=== PATIENT | female | born 1975 | race Caucasian/White ===

== ENCOUNTER 2017-04-12 11:46 | Emergency (ER) | payer SELFPAY ==
[2017-04-12 12:31] VITALS: TEMP 97.9
--- NOTE | 2017-04-12 13:04 | ED PDOC ---
HPI: Headache Time Seen by Provider: 04/12/17 12:42 Chief Complaint (Nursing): Headache Chief Complaint (Provider): headache History Per: Patient Additional Complaint(s): 31-year-old female with history of migraine headaches presents to emergency Department with headache that started at 1 AM. Patient did not take anything for pain at home. When she woke up this morning she noticed redness to her left eye with no associated pain or vision changes. She rates current headache as 7 out of 10. Patient states she has headache pain daily but the pain became worse overnight. Patient states this is not the worst headache of her life. She denies fever but states she had chills last night. No associated nausea or vomiting. PMD: [facility] Past Medical History Reviewed: Historical Data, Nursing Documentation, Vital Signs Vital Signs: Last Vital Signs Temp 97.9 F 04/12/17 12:27 Pulse 66 04/12/17 12:27 Resp 18 04/12/17 12:27 BP 183/98 H 04/12/17 12:27 Pulse Ox 99 04/12/17 12:27 - Medical History PMH: Migraine - Family History Family History: States: No Known Family Hx - Living Arrangements Living Arrangements: With Family - Social History Current smoker - smoking cessation education provided: No Alcohol: None Drugs: Denies - Home Medications Home Medications: Ambulatory Orders Medication Instructions Recorded Metoclopramide [Reglan] 10 mg PO Q6 PRN #20 tab 04/12/17 Naproxen [Naprosyn] 500 mg PO BID #20 tab 04/12/17 - Allergies Allergies/Adverse Reactions: Allergies Allergy/AdvReac Type Severity Reaction Status Date / Time No Known Allergies Allergy Verified 04/12/17 12:27 Review of Systems ROS Statement: Except As Marked, All Systems Reviewed And Found Negative Constitutional: Positive for: Chills. Negative for: Fever Eyes: Positive for: Redness (to left eye) Cardiovascular: Negative for: Chest Pain Respiratory: Negative for: Cough Gastrointestinal: Negative for: Nausea, Vomiting Neurological: Negative for: Weakness, Numbness, Incoordination, Change in Speech , Confusion, Seizures, Altered Mental Status, Headache, Dizziness Physical Exam - Reviewed Nursing Documentation Reviewed: Yes Vital Signs Reviewed: Yes - Physical Exam Appears: Positive for: Well, Non-toxic, No Acute Distress Head Exam: Positive for: ATRAUMATIC, NORMAL INSPECTION Skin: Positive for: Normal Color. Negative for: Rash Eye Exam: Positive for: Other (Subconjunctival hemorrhage noted to medial left eye) Neck: Positive for: Normal Cardiovascular/Chest: Positive for: Regular Rate, Rhythm Respiratory: Positive for: Normal Breath Sounds Neurologic/Psych: Positive for: Alert, radiation officer II-XII (grossly intact), Oriented, Gait (steady). Negative for: Motor/Sensory Deficits - Laboratory Results Result Diagrams: 04/12/17 14:26 04/12/17 14:26 Urine POC: Negative - ECG O2 Sat by Pulse Oximetry: 99 Pulse Ox Interpretation: Normal - Other Rad CT head X-Ray: Read By Radiologist X-Ray Interpretation: no acute finding Medical Decision Making Medical Decision Makin41 year old female with headache Plan: CBC CMP test Head CT IVF IV reglan PO tylenol Patient is aware of all diagnostic testing results, all questions answered. She reports complete resolution of pain status post meds given. Patient given prescriptions for Reglan and Naprosyn for use at home. She was referred to clinic for follow up. Disposition - Clinical Impression Clinical Impression: Migraine, Subconjunctival hemorrhage - Patient ED Disposition Is Patient to be Admitted: No Counseled Patient/Family Regarding: Studies Performed, Diagnosis, Need For Followup, Rx Given - Disposition Referrals: formerly [facility] [Outside] Disposition: Routine/Home Disposition Time: 16:53 Condition: IMPROVED Additional Instructions: Take prescription medications as directed. Rest and drink plenty of fluids. Follow-up with clinic in one to 2 days or return to emergency department any time if acutely worse. Prescriptions: Metoclopramide [Reglan] 10 mg PO Q6 PRN #20 tab PRN Reason: Nausea/Vomiting Naproxen [Naprosyn] 500 mg PO BID #20 tab Instructions: Migraine Headache (ED), Subconjunctival Hemorrhage (ED) Forms: [employer] (Zambian), [employer] ED School/Work Excuse Print Language: BURKIN[place] Results - Lab Results Lab Results: 04/12/17 04/12/17 14:26 14:26 WBC 5.5 RBC 4.59 Hgb 13.9 Hct 42.0 MCV 91.4 MCH 30.2 MCHC 33.0 RDW 13.4 Plt Count 183 MPV 9.8 Neut % (Auto) 66.4 Lymph % (Auto) 24.6 [place] % (Auto) 7.7 Eos % (Auto) 0.8 Baso % (Auto) 0.5 Neut # (Auto) 3.7 Lymph # (Auto) 1.4 [place] # (Auto) 0.4 Eos # (Auto) 0.0 Baso # (Auto) 0.0 Sodium 143 Potassium 3.7 Chloride 107 Carbon Dioxide 26 Anion Gap 14 BUN 10 Creatinine 0.6 L Est GFR ( Amer) > 60 Est GFR (Non-Af Amer) > 60 Random Glucose 97 Calcium 9.2 Total Bilirubin 0.7 AST 20 ALT 30 Alkaline Phosphatase 58 Total Protein 7.6 Albumin 4.3 Globulin 3.3 Albumin/Globulin Ratio 1.3
[2017-04-12] MEDS ORDERED: Sodium Chloride 0.9% 1,000 ML IV STA (13:07)
--- NOTE | 2017-04-12 14:28 | CT ---
PROCEDURE: CT HEAD WITHOUT CONTRAST. HISTORY: headache COMPARISON: CT head dated 11/30/2009. TECHNIQUE: Axial computed tomography images were obtained through the head/brain without intravenous contrast. Radiation dose: Total exam DLP = 99.8 mGy-cm. This CT exam was performed using one or more of the following dose reduction techniques: Automated exposure control, adjustment of the mA and/or kV according to patient size, and/or use of iterative reconstruction technique. FINDINGS: HEMORRHAGE: No intracranial hemorrhage. BRAIN: No mass effect or edema. No atrophy or chronic microvascular ischemic changes. VENTRICLES: Unremarkable. No hydrocephalus. CALVARIUM: Unremarkable. PARANASAL SINUSES: Unremarkable as visualized. No significant inflammatory changes. MASTOID AIR CELLS: Right maxillary sinus polyp or retention cyst. Small left maxillary sinus secretions. OTHER FINDINGS: None. IMPRESSION: No acute intracranial pathology.
[2017-04-12 14:44] LABS: BASO % 0.5 % (0.0-2.0); EOS % 0.8 % (0.0-4.0); HEMOGLOBIN 13.9 g/dL (12.0-16.0); LYMPH # 1.4 K/uL (1.0-4.3); LYMPH % 24.6 % (20.0-40.0); MEAN CELL VOLUME 91.4 fl (81.0-99.0); MEAN CORPUSCULAR HEMOGLOBIN 30.2 pg (27.0-31.0); MEAN PLATELET VOLUME 9.8 fl (7.2-11.7); MONO # 0.4 K/uL (0.0-0.8); MONO % 7.7 % (0.0-10.0); NEUT # 3.7 K/uL (1.8-7.0); NEUT % 66.4 % (50.0-75.0); NRBC % 0.1 % (0.0-0.0); RBC 4.59 Mil/uL (3.80-5.20); RED CELL DISTRIBUTION WIDTH 13.4 % (11.5-14.5); WHITE BLOOD COUNT 5.5 K/uL (4.8-10.8)
[2017-04-12 15:03] LABS: ALB/GLOB RATIO 1.3 (1.0-2.1); ALBUMIN 4.3 g/dL (3.5-5.0); ALT/SGPT 30 U/L (9-52); AST/SGOT 20 U/L (14-36); BLOOD UREA NITROGEN 10 mg/dl (7-17); CALCIUM 9.2 mg/dL (8.4-10.2); GFR AFRICAN-AMERICAN > 60; GFR NON-AFRICAN AMERICAN > 60
[2017-04-12 15:59] VITALS: BP 137/82; PULSE 61; RESP 16
[2017-04-12 16:55] VITALS: O2SAT 99
== END 2017-04-12 18:31 | disposition home or self-care (01) ==
LOC: H.ER 11:46
DX: G43.909 Migraine, unspecified, not intractable, without status migrainosus (principal); H11.30 Conjunctival hemorrhage, unspecified eye
CPT/HCPCS: 70450; 80053; 85025; 99284; J2765; J7040

== ENCOUNTER 2017-09-30 16:59 | Emergency (ER) | payer SELFPAY ==
[2017-09-30] MEDS ORDERED: Famotidine 40 MG/5 ML PO STA (17:45)
--- NOTE | 2017-09-30 18:01 | ED PDOC ---
HPI: Skin/Bite Injury Time Seen by Provider: 09/30/17 17:11 Chief Complaint (Nursing): Abnormal Skin Integrity Chief Complaint (Provider): Skin Rash History Per: Patient History/Exam Limitations: no limitations Onset/Duration Of Symptoms: Days (x1 week) Current Symptoms Are (Timing): Still Present Additional Complaint(s): 42 year old female presents to the ED for evaluation of a diffuse red body rash for one week. Patient states that the rash starts off as itchy small bumps, but after itching, they progressively become larger and sting. She denies any new detergents, lotions, perfumes, or food. Otherwise, (-) taking any medications prior to arrival, (-) hx of similar rashes, (-) shortness of breath, (-) nausea , (-) vomiting, (-) recent travel. LNMP: 09/24/17 PMD: [facility] Past Medical History Reviewed: Historical Data, Nursing Documentation, Vital Signs Vital Signs: Last Vital Signs Temp 98 F 09/30/17 18:44 Pulse 85 09/30/17 18:44 Resp 16 09/30/17 18:44 BP 137/72 09/30/17 18:44 Pulse Ox 97 09/30/17 18:44 - Medical History PMH: HTN, Migraine - Surgical History Other surgeries: breast cyst removal - Family History Family History: States: Unknown Family Hx - Social History Current smoker - smoking cessation education provided: No Alcohol: None Drugs: Denies - Home Medications Home Medications: Ambulatory Orders Medication Instructions Recorded Metoclopramide [Reglan] 10 mg PO Q6 PRN #20 tab 04/12/17 Naproxen [Naprosyn] 500 mg PO BID #20 tab 04/12/17 DiphenhydrAMINE [Benadryl] 50 mg PO Q6 #28 cap 09/30/17 Famotidine [Pepcid] 40 mg PO DAILY #5 tab 09/30/17 predniSONE [predniSONE Tab] 40 mg PO DAILY #10 tab 09/30/17 - Allergies Allergies/Adverse Reactions: Allergies Allergy/AdvReac Type Severity Reaction Status Date / Time No Known Allergies Allergy Verified 09/30/17 17:07 Review of Systems ROS Statement: Except As Marked, All Systems Reviewed And Found Negative Respiratory: Negative for: Shortness of Breath Gastrointestinal: Negative for: Nausea, Vomiting Skin: Positive for: Rash (diffuse red bumps, beginning small and itchy, turning large and mildly painful) Physical Exam - Reviewed Nursing Documentation Reviewed: Yes Vital Signs Reviewed: Yes - Physical Exam Comments: GENERAL APPEARANCE: Patient is awake, alert, oriented x 3, in no acute distress. Resting comfortably. SKIN: Scattered erythematous hive like lesions, some of which have scabbed. Otherwise (-) surrounding erythema, (-) drainage, (-) surrounding cellulitis. HENT: (-) conjunctival injection, (-) chemosis. Oropharynx: clear (-) tongue or lip swelling, (-) tonsillar exudates, (-) erythema. Airway: patent (-) stridor, (-) hoarseness. Mucous membranes moist. Nares: Patent (-) rhinorrhea. Pharynx clear, uvula midline. NECK: Supple, FROM (-) lymphadenopathy, (-) tenderness. CARDIOVASCULAR: Normal rate and rhythm CHEST: (-) rales, (-) wheezing, (-) dyspnea, (-) stridor. Breath sounds equal bilaterally. Speaking in full sentences, respirations even and nonlabored. ABDOMEN: Soft. (-) tenderness, (-) distention NEURO: Mental status as above; Speech clear, gait steady. (-) facial asymmetry ( -) focal deficit. Medical Decision Making Medical Decision Making: Time: 1744 Initial Impression: rash, allergic reaction Initial Plan: --Benadryl 50 mg PO (Not driving home) --Pepcid 40 mg PO --Prednisone 60 mg PO --Re-evaluation 1839 On re-evaluation, patient reports improvement of symptoms. On exam, patient remains AAOx3, in no acute distress. On exam, neck is supple, lungs CTA, cardiac RRR, abdomen is soft and non-tender, neuro exam shows no focal findings. VSS, stable for discharge. Diagnostic results d/w the patient in great detail. Dx of rash, probable allergic reaction d/w the patient. Based on history, exam and diagnostic results plan will be for discharge and outpatient follow up. Advised to follow up with primary care physician in 1-2 days without fail. Advised to take medication as prescribed. Return to the emergency room at any time for any new or worsening symptoms. Patient states she fully agrees with and understands discharge instructions. States that she agrees with the plan and disposition. Verbalized and repeated discharge instructions and plan. I have given the patient opportunity to ask any additional questions. Scribe Attestation: Documented by Deisy Garcia, acting as a scribe for Josy Carrion PA-C. Provider Scribe Attestation: All medical record entries made by the Scribe were at my direction and personally dictated by me. I have reviewed the chart and agree that the record accurately reflects my personal performance of the history, physical exam, medical decision making, and the department course for this patient. I have also personally directed, reviewed, and agree with the discharge instructions and disposition. Disposition - Clinical Impression Clinical Impression: Rash in adult, Allergic reaction - Patient ED Disposition Is Patient to be Admitted: No Counseled Patient/Family Regarding: Studies Performed, Diagnosis, Need For Followup, Rx Given - Disposition Referrals: [facility] [Outside] Disposition: Routine/Home Disposition Time: 18:42 Condition: IMPROVED Additional Instructions: FOLLOW UP WITH PMD IN 1-2 DAYS FOR FURTHER EVALUATION. RETURN TO ED WITH ANY NEW OR WORSENING SYMPTOMS. TAKE MEDICATIONS PRESCRIBED. Prescriptions: DiphenhydrAMINE [Benadryl] 50 mg PO Q6 #28 cap Famotidine [Pepcid] 40 mg PO DAILY #5 tab predniSONE [predniSONE Tab] 40 mg PO DAILY #10 tab Instructions: Skin Rash, Allergy Skin Testing Forms: [employer] (Japanese) Print Language: GREEK - POA Present On Arrival: None
[2017-09-30 18:45] VITALS: BP 137/72; PULSE 85; RESP 16; TEMP 98; O2SAT 97
== END 2017-09-30 18:45 | disposition home or self-care (01) ==
LOC: H.ER 16:59
DX: T78.40XA Allergy, unspecified, initial encounter (principal); I10 Essential (primary) hypertension